=== PATIENT | male | born 1950 | race Caucasian/White ===

== ENCOUNTER 2023-04-06 12:16 | Emergency (ER) | payer MEDICARE, SELFPAY ==
[2023-04-06 12:17] VITALS: BP 132/80; PULSE 96; TEMP 36.5; O2SAT 98; BMI 30.4
--- NOTE | 2023-04-06 12:22 | XRR_ITS ---
PROCEDURE INFORMATION: Exam: XR Chest Exam date and time: 04/06/2023 12:56 PM Age: 72 years old Clinical indication: Other: AMS TECHNIQUE: Imaging protocol: Radiologic exam of the chest. Views: 1 view. COMPARISON: No relevant prior studies available. FINDINGS: Lungs: No focal consolidation. Pleural spaces: No large pleural effusion. No significant pneumothorax. Heart/Mediastinum: Cardiomediastinal silhouette is midline and normal in size. Vasculature: Mild calcification of the aortic knob. Bones/joints: Status post right shoulder total arthroplasty. XR/XR chest 1V portable [id number] IMPRESSION: No acute cardiopulmonary findings.
--- NOTE | 2023-04-06 12:29 | ECG_ITS ---
[facility] Test Date: 2023-04-06 Pat Name: Saleem Thomas Department: Room: Gender: Male Noc Technician: : 1950 Requested By: Krzysztof Rivero Order Number: [id number] Rafia MD: Elizabet Farmer M.D. Measurements Intervals [place] Rate: 94 P: 34 NH: 175 QRS: -14 QRSD: 93 T: 53 QT: 345 QTc: 433 Interpretive Statements SINUS RHYTHM LOW QRS VOLTAGE IN PRECORDIAL LEADS [QRS DEFLECTION < 1.0 mV IN CHEST LEADS] VOLTAGE CRITERIA FOR LVH [MEETS CRITERIA IN ONE OF: R(aVL), S(V1), R(V5), R(V5/V6)+S(V1)] NONSPECIFIC T-WAVE ABNORMALITY No previous ECG available for comparison Electronically Signed On 04-06-2023 15:30:23 POULTRY HATCHERY MANAGER by Elizabet Farmer M.D. [email or web address]
--- NOTE | 2023-04-06 12:38 | CTR_ITS ---
PROCEDURE INFORMATION: Exam: CT Head Without Contrast Exam date and time: 04/06/2023 2:00 PM Age: 72 years old Clinical indication: Altered mental status/memory loss; Additional info: AMS, confusion TECHNIQUE: Imaging protocol: Computed tomography of the head without contrast. Radiation optimization: All CT scans at this facility use at least one of these dose optimization techniques: automated exposure control; mA and/or kV adjustment per patient size (includes targeted exams where dose is matched to clinical indication); or iterative reconstruction. REPORTING DATA: Count of CT and Cardiac NM exams in prior 12 months: This patient has received 0 known CTs and 0 known cardiac nuclear medicine studies in the 12 months prior to the current study. COMPARISON: No relevant prior studies available. RADIATION DOSE METRICS: Total DLP (mGy-cm): 1165.7 FINDINGS: Brain: Mild cerebral atrophy. Mild nonspecific periventricular white matter disease. No acute intracranial hemorrhage. No midline shift. Normal differentiation of bond-white matter. Cerebral ventricles: Ventricles are normal in caliber. Paranasal sinuses: Visualized paranasal sinuses are clear. Mastoid air cells: Mastoid air cells are clear. Bones/joints: No acute osseous findings. Soft tissues: Superficial soft tissues are within normal limits. CT/CT head wo con* [id number] IMPRESSION: No acute intracranial findings.
--- NOTE | 2023-04-06 12:41 | W.ED.AMS ---
HPI - Altered Mental Status General: Chief Complaint: Altered Mental Status Stated Complaint: AMS Time Seen by Provider: 04/06/23 12:21 History of Present Illness: Patient presents to the ER by EMS with complaints of altered mental status. Patient states he is from [facility] and is unaware how he ended up in [place]. Patient was found in arise parking lot in his car was at a gas. Patient's car was taken he was bren and patient was brought in here because he did not know how he got there or why he was there. Patient denies any pain or recent falls. Review of Systems General: Reports: ROS unobtainable due to mental status Physical Exam Const: COMMON NORMALS: no acute distress, average body habitus, healthy appearing, alert and well nourished HENMT: COMMON NORMALS: normocephalic, atraumatic, hearing grossly normal bilaterally, external ears normal, Normal external nose present, moist oral mucous membranes and oropharynx normal HEAD & SCALP: normocephalic and atraumatic NOSE: Normal external nose present EXTERNAL EAR: Yes external ears normal Eye: COMMON NORMALS: Equal, round and reactive pupils present, EOMs intact bilaterally, conjunctivae normal and no scleral icterus CONJUNCTIVA: Yes conjunctivae normal PUPIL: Yes Equal, round and reactive pupils present Neck/C-Spine: COMMON NORMALS: full ROM, no lymphadenopathy, supple, no meningeal signs, no JVD and Thyroid normal THYROID: Thyroid normal Lymph: LYMPHATIC: no lymphadenopathy noted Chest: COMMONS NORMALS: normal inspection of the chest and normal palpation of entire chest wall Resp: COMMON NORMALS: normal respiratory effort, No retractions, No use of accessory muscles and clear to auscultation bilaterally AUSCULTATION: clear to auscultation bilaterally Cardio: COMMON NORMALS: no JVD, regular rate, regular rhythm, S1 normal heart sound present, S2 normal heart sound present, No gallops present (Cardio), No clicks present (Cardio), No murmurs present (Cardio) and No rub (Cardio) RATE: regular rate RHYTHM: regular rhythm HEART SOUNDS: S1 normal heart sound present and S2 normal heart sound present GI: COMMON NORMALS: Normal to inspection, nondistended, normoactive bowel sounds present, Soft to palpation, non-tender, No hepatosplenomegaly present and no masses PALPATION: Yes Soft to palpation and Yes No hepatosplenomegaly present : COMMON NORMALS: Yes no CVA tenderness BLADDER/KIDNEY EXAM: Yes no CVA tenderness Back/Pelvis: COMMON NORMALS: no CVA tenderness Extremity: NARRATIVE EXTREMITY EXAM: No bilateral lower extremity edema Neuro: SENSORIUM/ORIENTATION: Yes alert MENINGEAL SIGNS: Yes no meningeal signs Course Vital Signs: Vital signs: Vital Signs Temperature 97.7 F 04/06/23 12:17 Pulse Rate 96 04/06/23 12:17 Blood Pressure 132/80 04/06/23 12:17 Pulse Oximetry 98 04/06/23 12:17 Oxygen Delivery Me thod Room Air 04/06/23 12:17 MDM - Altered Mental Status Medical Decision Making Nursing talk to patient's daughter who says patient often does this. She does not know the medications he is on nor his medical conditions. But she has stated that he has done this multiple times and this is the furthest he is ever got. All lab work was essentially benign showing no acute changes for reasons of altered mental status including chest x-ray head CT blood work. Patient's daughter is coming to get the patient patient be discharged her when she gets here. Differential Diagnosis Likely altered mental status; Unlikely alcoholic intoxication, delirium, dementia, hypoglycemia, hyponatremia, subarachnoid hemorrhage or sepsis Medical Records I reviewed the patient's medical records. Lab Data I reviewed the patient's lab results. 04/06/23 12:31 04/06/23 12:31 Radiology Impressions Chest X-Ray 04/06/23 12:22 IMPRESSION: No acute cardiopulmonary findings. Head CT 04/06/23 12:38 IMPRESSION: No acute intracranial findings. Laboratory Results WBC 9.53 10^3/uL (3.29-11.43) 04/06/23 12:31 RBC 4.74 10^6/uL (3.85-5.65) 04/06/23 12:31 Hgb 11.00 g/dL (11.27-16.99) L 04/06/23 12:31 Hct 37.7 % (37-53) 04/06/23 12:31 MCV 79.5 fl (82-101) L 04/06/23 12:31 MCH 23.2 pg (27-33) L 04/06/23 12:31 MCHC 29.2 g/dL (30-55) L 04/06/23 12:31 RDW 17.1 % (12.1-15.1) H 04/06/23 12:31 Plt Count 430 10^3/cmm (157-399) H 04/06/23 12:31 MPV 8.4 fL (7.4-10.4) 04/06/23 12:31 Neut % (Auto) 66.6 % 04/06/23 12:31 Lymph % (Auto) 19.7 % 04/06/23 12:31 [place] % (Auto) 12.6 % 04/06/23 12:31 Eos % (Auto) 0.4 % 04/06/23 12:31 Baso % (Auto) 0.4 % 04/06/23 12:31 Neut # (Auto) 6.34 10^3/uL (1.8-7.7) 04/06/23 12:31 Lymph # (Auto) 1.9 10^3/uL (0.8-4.8) 04/06/23 12:31 [place] # (Auto) 1.2 10^3/uL (0.2-0.9) H 04/06/23 12:31 Eos # (Auto) 0.0 10^3/uL (0.0-0.8) 04/06/23 12:31 Baso # (Auto) 0.0 10^3/uL (0.0-0.1) 04/06/23 12:31 Nucleated RBC % (auto) 0 % 04/06/23 12:31 Nucleated RBCs # 0.0 /100WBC 04/06/23 12:31 Sodium 136 mmol/L (136-145) 04/06/23 12:31 Potassium 4.0 mmol/L (3.5-5.1) 04/06/23 12:31 Chloride 99 mmol/L (98-107) 04/06/23 12:31 Carbon Dioxide 24 mmol/L (22-29) 04/06/23 12:31 Anion Gap 17.0 (5-19) 04/06/23 12:31 BUN 27 mg/dL (8-23) H 04/06/23 12:31 Creatinine 1.1 mg/dL (0.7-1.2) 04/06/23 12:31 GFR Calculation 66.2 mL/min (90-130) L 04/06/23 12:31 Glucose 112 mg/dL (65-115) 04/06/23 12:31 Calculated Osmolality 288 mOsm/kg (285-295) 04/06/23 12:31 Calcium 9.5 mg/dL (8.5-10.5) 04/06/23 12:31 Magnesium 2.1 mg/dL (1.7-2.3) 04/06/23 12:31 Total Bilirubin 0.4 mg/dL (0.15-1.2) 04/06/23 12:31 AST 15 U/L (0-40) 04/06/23 12:31 ALT 9 U/L (0-41) 04/06/23 12:31 Alkaline Phosphatase 94 U/L (40-130) 04/06/23 12:31 Total Protein 7.1 g/dL (6.6-8.7) 04/06/23 12:31 Albumin 3.8 g/dL (3.5-5.2) 04/06/23 12:31 Globulin 3.3 g/dL (1.3-4.6) 04/06/23 12:31 All radiology interpretation(s) finalized by discharge EKG Data EKG 1: I personally reviewed and interpreted this EKG as follows: EKG interpretation date: 04/06/23 EKG interpretation time: 12:29 Prior EKG tracings: not available for review Interpretation: EKG showed ventricular rate 94 bpm, AL interval 175, QRS duration 93, QTc 397, sinus rhythm, LVH, nonspecific T wave abnormality Discharge Plan Discharge Patient Disposition: Home Clinical Impression: Altered mental status Qualifiers: Altered mental status type: disorientation Qualified Code(s): R41.0 - Disorientation, unspecified Condition: Stable Prescriptions: No Action carvedilol 6.25 mg Tablet 6.25 mg PO BID Rx Instructions: must administer with a meal/food gabapentin 800 mg Tablet 800 mg PO BID Discharge Orders: Discharge ED (Routine); Ordered 04/06/23 Ordered By: Krzysztof Rivero Patient Instructions: Altered Mental Status (ED) Activity Restrictions/Additional Instructions: Your lab work was essentially benign and did not show any cause for altered mental status. Please follow-up with your family practice physician within the next 7 days for further evaluation and testing. He will be discharged to your daughter when she gets here to take you home. Coding Level of Care Code ED Cutting Table Operator for Sundeep Burrell
[2023-04-06 12:42] LABS: Basophils % 0.4 %; Eosinophils % 0.4 %; Hematocrit 37.7 % (37-53); Lymphocytes # 1.9 10^3/uL (0.8-4.8); Lymphocytes % 19.7 %; Mean Corpuscular HGB Conc 29.2 g/dL (30-55); Mean Corpuscular Hemoglobin 23.2 pg (27-33); Mean Corpuscular Volume 79.5 fl (82-101); Mean Platelet Volume 8.4 fL (7.4-10.4); Monocytes # 1.2 10^3/uL (0.2-0.9); Monocytes % 12.6 %; Neutrophils # 6.34 10^3/uL (1.8-7.7); Neutrophils % 66.6 %; Nucleated Red Blood Cells % 0 %; Platelet Count 430 10^3/cmm (157-399); Red Blood Count 4.74 10^6/uL (3.85-5.65); Red Cell Distribution Width 17.1 % (12.1-15.1); White Blood Count 9.53 10^3/uL (3.29-11.43)
[2023-04-06 13:01] LABS: Alanine Aminotransferase 9 U/L (0-41); Albumin Level 3.8 g/dL (3.5-5.2); Alkaline Phosphatase 94 U/L (40-130); Aspartate Amino Transferase 15 U/L (0-40); Blood Urea Nitrogen 27 mg/dL (8-23); Calcium 9.5 mg/dL (8.5-10.5); Carbon Dioxide 24 mmol/L (22-29); Chloride 99 mmol/L (98-107); Globulin 3.3 g/dL (1.3-4.6); Glomerular Filtration Rate 66.2 mL/min (90-130); Glucose 112 mg/dL (65-115); Magnesium 2.1 mg/dL (1.7-2.3); Osmolality Calculated 288 mOsm/kg (285-295); Sodium 136 mmol/L (136-145); Total Bilirubin 0.4 mg/dL (0.15-1.2); Total Protein 7.1 g/dL (6.6-8.7)
--- NOTE | 2023-04-06 14:44 | PC.PHAR ---
PT STATES GETS MEDS AT [facility] IN [place]. HE REMEMBERS ONLY 2 MEDICATIONS. GABAPENTIN 800 MG TWICE DAILY AND CARVEDILOL 6.25 MG TWICE DAILY. 04/06/23
--- NOTE | 2023-04-06 18:58 | PC.NURSE ---
Report taken from Glenna HU at this time.
[2023-04-06 20:06] VITALS: BP 116/69; PULSE 113; RESP 18; O2SAT 100
[2023-04-06 20:07] VITALS: BP 116/69; PULSE 112; RESP 18; O2SAT 98
== END 2023-04-06 20:10 | disposition home or self-care (01) ==
PROVIDERS: Emergency Provider Emergency Medicine
DX: R41.0 Disorientation, unspecified (principal)
CPT/HCPCS: 36415; 70450; 71045; 80053; 83735; 85025; 93005; 99285